=== PATIENT | male | born 1990 | race American Indian/Alaskan Native ===

== ENCOUNTER 2017-01-20 12:17 | Emergency (ER) | payer OTHER ==
[2017-01-20 16:07] VITALS: BP 127/75
[2017-01-20] MEDS ORDERED: MOTRIN PO ONE (17:01)
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
== END 2017-01-20 18:32 | disposition home or self-care (01) ==
LOC: ED 12:17
DX: S39.012A Strain of muscle, fascia and tendon of lower back, initial encounter (principal); S86.912A Strain of unspecified muscle(s) and tendon(s) at lower leg level, left leg, initial encounter; F17.200 Nicotine dependence, unspecified, uncomplicated; V49.3XXA Car occupant (driver) (passenger) injured in unspecified nontraffic accident, initial encounter; Y92.488 Other paved roadways as the place of occurrence of the external cause; Y93.89 Activity, other specified; Y99.9 Unspecified external cause status
CPT/HCPCS: 72100; 99283